=== PATIENT | female | born 2000 | race Caucasian/White ===

== ENCOUNTER 2023-11-03 13:35 | Emergency (ER) | payer OTHER ==
[~2023-11-03] VITALS: Ht 157.5 cm; Wt 59.3 kg
[2023-11-03 14:18] LABS: BASO % 0.1 % (0.0-1.0); EOS # 0.1 10^3/uL (0.0-0.5); EOS % 0.8 % (0.0-3.0); LYMPH % 11.4 % (24.0-44.0); MEAN CORPUSCULAR HEMOGLOBIN 31.7 pg (27.0-33.0); MEAN CORPUSCULAR HGB CONC 34.3 g/dl (32.0-36.5); MEAN CORPUSCULAR VOLUME 92.6 fl (80.0-96.0); MONO # 0.4 10^3/uL (0.0-0.8); MONO % 5.2 % (2.0-8.0); NEUTROPHILS # 6.9 10^3/uL (1.5-8.5); NEUTROPHILS % 82.3 % (36.0-66.0); PLATELET COUNT, AUTOMATED 203 10^3/uL (150-450); RED BLOOD COUNT 3.78 10^6/uL (4.00-5.40); WHITE BLOOD COUNT 8.4 10^3/uL (4.0-10.0)
[2023-11-03] MEDS: NS 1,000 ML IV ONE (14:36)
[2023-11-03 14:50] LABS: CK-MB VALUE MASS < 1.0 NG/ML (<3.6); LIPASE 40 U/L (12-53)
[2023-11-03 14:52] LABS: ALBUMIN 3.7 G/DL (3.2-5.2); ALKALINE PHOSPHATASE 50 U/L (46-116); ALT/SGPT < 9 U/L (7.0-40); AST/SGOT 12 U/L (<34); BILIRUBIN,DIRECT 0.2 MG/DL (<0.4); BILIRUBIN,TOTAL 0.5 MG/DL (0.3-1.2); BLOOD UREA NITROGEN 16 MG/DL (9-23); CALCIUM LEVEL 8.4 MG/DL (8.5-10.1); CARBON DIOXIDE LEVEL 26 MMOL/L (20-31); CHLORIDE LEVEL 110 MMOL/L (98-107); CPK CREATINE PHOSPHOKINASE 83 U/L (34-145); CREATININE FOR GFR 0.86 MG/DL (0.55-1.30); GLOMERULAR FILTRATION RATE > 60.0 (>60); GLUCOSE, FASTING 127 MG/DL (60-100); SODIUM LEVEL 139 MMOL/L (136-145); TOTAL PROTEIN 6.4 G/DL (5.7-8.2)
[2023-11-03 14:58] LABS: HCG, SERUM QUALITATIVE NEGATIVE (NEGATIVE)
[2023-11-03] MEDS ORDERED: LEXA1TAB2 PO (15:52)
[2023-11-03] MEDS ORDERED: WELLTAB38 PO (15:52)
[2023-11-03] MEDS ORDERED: HYDR-3363 PO (15:52)
[2023-11-03 15:55] LABS: CK-MB VALUE MASS < 1.0 NG/ML (<3.6)
[2023-11-03 16:04] LABS: CPK CREATINE PHOSPHOKINASE 78 U/L (34-145); MB/CK RELATIVE INDEX 1.28 (< OR =4)
[2023-11-03 16:34] VITALS: BP 112/74; TEMP 95.8; O2SAT 99
== END 2023-11-03 16:46 | disposition home or self-care (01) ==
LOC: M ED 13:35 → EDBD 13:35 → M ED 16:46
DX: R55 Syncope and collapse (principal); R00.1 Bradycardia, unspecified; I49.49 Other premature depolarization; G40.909 Epilepsy, unspecified, not intractable, without status epilepticus; F32.A Depression, unspecified; F41.9 Anxiety disorder, unspecified; Z79.899 Other long term (current) drug therapy

== ENCOUNTER → 2024-01-19 | Outpatient (REF) | payer OTHER ==
[~2024-01-19] MED LIST: HYDR-3363 PO; LEXA1TAB2 PO; WELLTAB38 PO
[2024-01-21 13:57] LABS: HPV APTIMA Detected (Not Detected)
== END ==
LOC: M LAB REF 17:41
PROVIDERS: ATTEND Physician Assistant
DX: Z12.4 Encounter for screening for malignant neoplasm of cervix (principal); R87.615 Unsatisfactory cytologic smear of cervix
CPT/HCPCS: 87624; G0123

== ENCOUNTER → 2024-02-03 | Outpatient (REF) | payer OTHER | LOC: M LAB REF 17:22 | PROVIDERS: ATTEND Physician Assistant | DX: Z12.4 Encounter for screening for malignant neoplasm of cervix (principal); Z11.3 Encounter for screening for infections with a predominantly sexual mode of transmission ==

== ENCOUNTER 2024-12-23 14:43 | Emergency (ER) | payer OTHER ==
[~2024-12-23] VITALS: Ht 157.5 cm; Wt 67.2 kg
[2024-12-23 15:18] LABS: BASO # 0.0 10^3/uL (0.0-0.2); BASO % 0.3 % (0.0-1.0); EOS # 0.0 10^3/uL (0.0-0.5); EOS % 0.3 % (0.0-3.0); LYMPH # 0.8 10^3/uL (1.5-5.0); LYMPH % 11.0 % (24.0-44.0); MONO # 0.5 10^3/uL (0.0-0.8); MONO % 6.1 % (2.0-8.0); NEUTROPHILS # 6.1 10^3/uL (1.5-8.5); NEUTROPHILS % 80.7 % (36.0-66.0); PLATELET COUNT, AUTOMATED 204 10^3/uL (150-450)
[2024-12-23 15:36] LABS: AMPHETAMINES LEVEL URINE NEGATIVE (NEGATIVE); BARBITURATES URINE NEGATIVE (NEGATIVE); BENZODIAZEPINES URINE NEGATIVE (NEGATIVE); COCAINE METABOLITE URINE NEGATIVE (NEGATIVE); METHADONE URINE NEGATIVE (NEGATIVE); OPIATES URINE NEGATIVE (NEGATIVE); PHENCYCLIDINE URINE NEGATIVE (NEGATIVE)
[2024-12-23 15:37] LABS: CANNABINOIDS URINE NEGATIVE (NEGATIVE); ETHYL ALCOHOL (ETHANOL) < 0.003 % (0.000-0.010)
[2024-12-23 15:45] LABS: HCG, SERUM QUALITATIVE NEGATIVE (NEGATIVE)
[2024-12-23 15:57] LABS: ALT/SGPT 11 U/L (7.0-40); AST/SGOT 16 U/L (<34); CALCIUM LEVEL 8.6 MG/DL (8.5-10.1); CARBON DIOXIDE LEVEL 26 MMOL/L (20-31); CHLORIDE LEVEL 101 MMOL/L (98-107); CREATININE FOR GFR 0.83 MG/DL (0.55-1.30); GLOMERULAR FILTRATION RATE > 90.0 (>60); MAGNESIUM LEVEL 1.4 MG/DL (1.8-2.4); POTASSIUM SERUM 4.1 MMOL/L (3.5-5.1); SODIUM LEVEL 136 MMOL/L (136-145)
[2024-12-23] MEDS: MAG SULF 1GM/100ML (MAG RUN) 1 GM in IV 1 EA IV ONE (16:54)
[2024-12-23] MEDS: ACETAMINOPHEN 325 MG TAB PO ONE (16:55)
[2024-12-23] MEDS: levETIRAcetam INJection 1,000 MG in IV 1 EA IV ONE (17:42)
[2024-12-23 18:10] VITALS: TEMP 101.7
[2024-12-23] MEDS ORDERED: KEPP1TAB PO (21:20)
[2024-12-23 21:30] VITALS: O2SAT 99
[2024-12-23 21:52] LABS: KETONE, URINE AUTO RFX 1+ mg/dL (NEGATIVE); MUCUS, URINE RFX SMALL (NEGATIVE); NITRITE, URINE AUTO RFX NEGATIVE (NEGATIVE); RBC, URINE AUTO RFX 13 /HPF (0-3); SQUAM EPITHELIAL CELL UR AURFX 0 /HPF (0-6)
[2024-12-23 21:59] LABS: LEUKOCYTE ESTERASE UR AUTO RFX TRACE (NEGATIVE); WBC, URINE AUTO RFX 16 /HPF (0-3)
[2024-12-23] MEDS: KETOROLAC 30 MG/ML 1 ML VIAL IV ONE (22:01)
[2024-12-23 22:05] VITALS: BP 112/65
[2024-12-25] MEDS ORDERED: CIPR-249 PO (17:48)
== END 2024-12-23 22:10 | disposition home or self-care (01) ==
LOC: M ED 14:43 → EDBD 14:43 → M ED 22:10
DX: G40.909 Epilepsy, unspecified, not intractable, without status epilepticus (principal); R50.9 Fever, unspecified; M54.50 Low back pain, unspecified; F41.9 Anxiety disorder, unspecified; Z79.899 Other long term (current) drug therapy
CPT/HCPCS: 70450; 71045; 72125; 80048; 80076; 80307; 81001; 82077; 83605; 83735; 84703; 85025; 86618; 87088; 87186; 87486; 87581; 87633; 87798; 93041; 94760; 96365; 96367; 96375; 99285; J1885; J1953; J3475

== ENCOUNTER → 2025-02-01 | Outpatient (REF) | payer OTHER ==
[~2025-02-01] MED LIST changes: +CIPR-249 PO; +KEPP1TAB PO
[2025-02-01 18:39] LABS: Trichomonas vaginalis (AMP) NOT DETECTED (NEGATIVE)
[2025-02-01 19:03] LABS: GC DNA AMPLIFICATION NEGATIVE (NEGATIVE)
[2025-02-04 11:37] LABS: HPV APTIMA Not Detected (Not Detected)
== END ==
LOC: M LAB REF 17:11
PROVIDERS: ATTEND Nurse Practitioner Family
DX: Z12.4 Encounter for screening for malignant neoplasm of cervix (principal); Z11.3 Encounter for screening for infections with a predominantly sexual mode of transmission
CPT/HCPCS: 87624; 87661; 87810; 87850; G0123